=== PATIENT | female | born 1990 | race African-American/Black ===

== ENCOUNTER 2017-08-10 09:33 | Observation (INO) | payer BC ==
[~2017-08-10] VITALS: Ht 162.6 cm; Wt 51.7 kg
[2017-08-10] MEDS ORDERED: SODIUM CHLORIDE 0.9% 1000ML 1,000 ML IV STA (09:41)
[2017-08-10] MEDS ORDERED: ONDANSETRON INJ 2 MG/ML 2 ML VIAL IV STA ×2 (09:41→11:00)
[2017-08-10] MEDS ORDERED: MoRPHine SULFATE 4 MG/ML 1 ML CARP\\VIAL IV STA (09:41)
[2017-08-10 10:07] LABS: BASO % 0.2 %; BASO ABS # 0.01 K/uL (0-0.2); EOS % 0.2 %; EOS ABS # 0.01 K/uL (0-0.5); HEMATOCRIT 39.1 % (37-47); HEMOGLOBIN 13.7 g/dL (12.0-16.0); IG# 0.02 K/uL (0.00-0.02); LYMPH % 19.9 %; LYMPH ABS # 1.02 K/uL (1.2-3.4); MEAN CELL VOLUME 94.2 fL (80-100); MEAN PLATELET VOLUME 9.6 fL (7.4-10.4); MONO % 8.4 %; MONO ABS # 0.43 K/uL (0.11-0.59); NEUT % 70.9 %; NEUT ABS # 3.64 K/uL (1.4-6.5); PLATELET COUNT 263 K/uL (130-400); RED CELL DISTRIBUTION WIDTH CV 13.3 % (11.5-14.5); RED CELL DISTRIBUTION WIDTH SD 46.1 fL (36.4-46.3); WHITE BLOOD COUNT 5.13 K/uL (4.8-10.8)
[2017-08-10 10:26] LABS: ALBUMIN 4.1 gm/dl (3.4-5.0); CALCIUM 9.3 mg/dl (8.5-10.1); CREATININE 0.87 mg/dl (0.60-1.20); POTASSIUM 3.5 mmol/L (3.5-5.1)
[2017-08-10 10:29] LABS: TOTAL PROTEIN 8.1 gm/dl (6.4-8.2)
[2017-08-10] MEDS ORDERED: METOCLOPRAMIDE HCL INJ 5 MG/ML 2 ML VIAL IV. STA (10:38)
[2017-08-10] MEDS ORDERED: LORAZEPAM 2 MG/ML 1 ML VIAL IV STA (11:39)
--- NOTE | 2017-08-10 12:49 | DIAGNOSTIC IMAGING REPORT ---
ABD/PELVIS WITHOUT FOR STONE HISTORY: 26 years-old Female left sided pain eval for stone acute left-sided flank pain COMPARISON: None available TECHNIQUE: Multiple axial CT images of the abdomen and pelvis were obtained without the use of IV contrast. A dose lowering technique was used consistent with the principals of ALVARO. FINDINGS: Lung bases are generally clear. No pneumatosis or pneumoperitoneum identified. Imaged inferior cardiac chambers are unremarkable. The liver, spleen, gallbladder, and pancreas are unremarkable. There is mild thickening of the adrenal glands without discrete lesion definitively seen. There is mildly increased attenuation involving the medullary pyramids of the kidneys bilaterally which may be secondary to dehydration. No definite renal calculi or hydronephrosis. Study however is limited secondary to L2 and lack of mesenteric adipose tissue. Calcifications are seen within the pelvis suggesting phleboliths. Uterus is noted predominantly within the left hemipelvis. No definite adnexal mass lesions identified. Aorta is normal in course and caliber. No bulky adenopathy. Mild free pelvic fluid. There is no bowel obstruction or focal bowel wall thickening. Retained oral contrast is noted throughout the colon. There is mild wall thickening of the colon which extends from the ascending portion to the mid descending portion. Air-filled tubular structure within the right lower quadrant the abdomen is seen on image 259 series 3 suggesting normal appendix. Soft tissues are unremarkable. Bones appear intact. IMPRESSION: 1. No renal calculi or hydronephrosis identified. 2. Mild wall thickening of the colon extending from the region of the hepatic flexure to the mid descending colon may be secondary to partial distention or mild colitis. 3. Mild free pelvic fluid. The above report was generated using voice recognition software. It may contain grammatical, syntax or spelling errors. Electronically signed by: Caden Shook M.D. 08/10/2017 12:48 PM Dictated Date/Time: 08/10/2017 12:40 PM
[2017-08-10] MEDS ORDERED: ZOLPIDEM TARTRATE 5 MG TAB PO PRN (13:45)
[2017-08-10] MEDS ORDERED: ONDANSETRON INJ 2 MG/ML 2 ML VIAL IV PRN (13:45)
[2017-08-10] MEDS ORDERED: ACETAMINOPHEN 325 MG TAB PO PRN (13:45)
--- NOTE | 2017-08-10 14:39 | History and Physical ---
History & Physical Date & Time of Service: Aug 10, 2017 at 14:13 Chief Complaint: Abdominal Pain Primary Care Physician: No Doctor, Assigned History of Present Illness Source: patient, clinic records, hospital records This is a 26yo F with a PMH of cyclical vomiting syndrome, anxiety, depression and PCOS who presents with abdominal pain x 5 days. Patient is from [place] but is in town [facility]. Was initially diagnosed with cyclical vomiting syndrome at age 20 and experienced cycles of vomiting every month. States that at that time she had an EGD and colonoscopy with no abnormal findings. More recently, she has only been experiencing cyclical vomiting every 6-8 months. Went out to a bar on Wednesday and had two mixed drinks. Also endorses smoking marijuana. Had sudden onset 8/10 abdominal pain on in the mid- epigastrium/LUQ with radiation to her back with associated nausea, vomiting and diarrhea. Was first experiencing bilious bouts of vomiting but is now dry heaving every 1-2 hours. Denies any fever, chills, sore throat, cough, CP, SOB, hematemesis, dysuria or constipation. Has been drinking water over the last few days but has remained unable to tolerate food. Endorses smoking marijuana once a week for years. Endorses feeling anxious. Past Medical/Surgical History Medical Problems: (1) Anxiety Status: Chronic (2) Cyclical vomiting syndrome Status: Chronic (3) Depression Status: Chronic (4) PCOS (polycystic ovarian syndrome) Status: Chronic Surgical Problems: (1) History of elective Status: Resolved Family History No pertinent family history Non-contributory Social History Smoking Status: Former Smoker (quit 3 weeks ago) Alcohol Use: socially Drug Use: marijuana (weekly) Housing status: lives alone Occupational Status: unemployed Allergies Coded Allergies: Metoclopramide (Unverified Allergy, Unknown, HIVES, 08/10/17) Home Medications No Active Prescriptions or Reported Meds Review of Systems Ten systems reviewed and negative except as noted in the HPI. Physical Exam Vital Signs Date Time Temp Pulse Resp B/P (MAP) Pulse Ox O2 Delivery O2 Flow Rate FiO2 08/10/17 14:02 78 16 108/80 100 Room Air 08/10/17 12:13 111/66 100 08/10/17 11:34 59 16 100 Room Air 08/10/17 10:53 54 16 141/97 100 Room Air 08/10/17 09:39 37.4 54 16 164/100 100 Room Air General Appearance: no apparent distress, + thin Head: normocephalic, atraumatic Eyes: normal inspection, PERRL, sclerae normal ENT: normal ENT inspection, hearing grossly normal, pharynx normal (dry mucous membranes ) Neck: supple, no adenopathy, trachea midline Respiratory/Chest: chest non-tender, lungs clear, normal breath sounds, no respiratory distress, no accessory muscle use Cardiovascular: regular rate, rhythm, no murmur, normal peripheral pulses Abdomen/GI: normal bowel sounds, soft, no organomegaly, + tenderness (Diffuse TTP, most notably in LUQ. No guarding. ) Back: normal inspection, no CVA tenderness Extremities/Musculoskelatal: normal inspection, no calf tenderness, no pedal edema Neurologic/Psych: no motor/sensory deficits, alert, normal mood/affect ( anxious ), oriented x 3 Skin: normal color, warm/dry, no rash Diagnostics Laboratory Results Results Past 24 Hours Test 08/10/17 09:55 08/10/17 11:23 08/10/17 13:45 Range/Units White Blood Count 5.13 4.8-10.8 K/uL Red Blood Count 4.15 4.2-5.4 M/uL Hemoglobin 13.7 12.0-16.0 g/dL Hematocrit 39.1 37-47 % Mean Corpuscular Volume 94.2 80-100 fL Mean Corpuscular Hemoglobin 33.0 25-34 pg Mean Corpuscular Hemoglobin Concent 35.0 32-36 g/dl Platelet Count 263 130-400 K/uL Mean Platelet Volume 9.6 7.4-10.4 fL Neutrophils (%) (Auto) 70.9 % Lymphocytes (%) (Auto) 19.9 % Monocytes (%) (Auto) 8.4 % Eosinophils (%) (Auto) 0.2 % Basophils (%) (Auto) 0.2 % Neutrophils # (Auto) 3.64 1.4-6.5 K/uL Lymphocytes # (Auto) 1.02 1.2-3.4 K/uL Monocytes # (Auto) 0.43 0.11-0.59 K/uL Eosinophils # (Auto) 0.01 0-0.5 K/uL Basophils # (Auto) 0.01 0-0.2 K/uL RDW Standard Deviation 46.1 36.4-46.3 fL RDW Coefficient of Variation 13.3 11.5-14.5 % Immature Granulocyte % (Auto) 0.4 % Immature Granulocyte # (Auto) 0.02 0.00-0.02 K/uL Sodium Level 136 136-145 mmol/L Potassium Level 3.5 3.5-5.1 mmol/L Chloride Level 102 98-107 mmol/L Carbon Dioxide Level 27 21-32 mmol/L Anion Gap 7.0 3-11 mmol/L Blood Urea Nitrogen 14 7-18 mg/dl Creatinine 0.87 0.60-1.20 mg/dl Est Creatinine Clear Calc Drug Dose 80.7 ml/min Estimated GFR () 107.3 Estimated GFR (Non- 92.6 BUN/Creatinine Ratio 16.4 10-20 Random Glucose 102 70-99 mg/dl Calcium Level 9.3 8.5-10.1 mg/dl Total Bilirubin 0.8 0.2-1 mg/dl Direct Bilirubin 0.2 0-0.2 mg/dl Aspartate Amino Transf (AST/SGOT) 17 15-37 U/L Alanine Aminotransferase (ALT/SGPT) 24 12-78 U/L Alkaline Phosphatase 47 45-117 U/L Total Protein 8.1 6.4-8.2 gm/dl Albumin 4.1 3.4-5.0 gm/dl Lipase 700 73-393 U/L Human Chorionic Gonadotropin, Qual NEG NEG Diagnostic Radiology CT abd/pelvis: IMPRESSION: 1. No renal calculi or hydronephrosis identified. 2. Mild wall thickening of the colon extending from the region of the hepatic flexure to the mid descending colon may be secondary to partial distention or mild colitis. 3. Mild free pelvic fluid. Impression Assessment and Plan This is a 26yo F with a PMH of cyclical vomiting syndrome, anxiety, depression and PCOS who presents with abdominal pain x 5 days. Intractable nausea, vomiting: -Likely 2/2 history of cyclical vomiting syndrome, marijuana use -Discussed marijuana cessation -Also discussed possibility of viral gastroenteritis -Lipase of 700. Electrolytes wnl. No leukocytosis -Negative test -Flu antigen test, stool cultures and c. diff pending -CT abd pelvis with no evidence of pancreatitis. Mild colitis -Keep NPO for now. Advance diet as tolerated -Repeat lab work in AM - Zofran, IV tylenol Anxiety, depression: -Stable -No longer takes medication DVT Ppx: Brian romero Code status: FULL PCP: No local INTERIOR DESIGN PROGRAM CHAIR: visiting from [place] Dispo: [facility]. Plan to return home once medically stable. Patient seen in collaboration with Dr. Montemayor. Please see addendum. Agree with above H and P. Briefly 26F with hx of cyclic vomiting syndrome, anxiety, depression presents with vomiting and abdominal pain. Somewhat better since coming to ER. Afebrile.No chest pain or sob. No fevers. hemodynamics stable. p/e Ge : alert and oriented .not in distress Cvs s1 and s2 heard no murmurs Rs cta b/l no added sounds Abd diffuse tender no distension no guarding or rigidity [employer] non focal Ext no erythema a/p Nausea.vomiting abdominal pain hx of cyclic vomiting syndrome most likely from marijuana smoking lipase elevated but ct scan unremarkable except for mild colitis npo, fluids anti emetics repeat lipase in am advance diet as tolerated UTI possible f/u cx started on Rocephin Level of Care Med/Surg Resuscitation Status FULL RESUSCITATION VTE Prophylaxis VTE Risk Assessment Done? Y/N: Yes Risk Level: Low Given or contraindicated: TKandi Stockings Social Service Consult None Apply
[2017-08-10 14:46] LABS: INFLUENZA B ANTIGEN Neg for Influ B (NEG)
[2017-08-10 15:04] VITALS: BP 114/73; PULSE 58; TEMP 36.7; O2SAT 97; Ht 162.6 cm; Wt 51.7 kg
--- NOTE | 2017-08-10 15:11 | EMERGENCY ROOM VISIT NOTE ---
History Report prepared by Liza: Jose Antonio Coyle Under the Supervision of: Dr. Patrice Wright M.D. First contact with patient: 09:36 Stated Complaint: ABDOMINAL PAIN History of Present Illness The patient is a 26 year old female who presents to the Emergency Room brought in by EMS with complaints of constant abdominal pain that began three days [employer]. She currently rates her pain a 10/10 in severity. She describes the pain as cramping. She is unsure if she has had a fever, though she feels very hot. She notes diarrhea that began three days ago, though denies any bloody stools. She denies any problems urinating. She has been vomiting for three days. She has a history of cyclical vomiting syndrome. She has had similar pain in the past. She believes the pain hurts more than previous symptoms. She has seen a GI doctor where she has had an EGD and colonoscopy, with no pertinent findings. She denies any history of Crohn's disease. Source of History: patient Onset: three days [employer] Position: abdomen Symptom Intensity: 10/10 Quality: other (cramping) Timing: constant Associated Symptoms: + vomiting, + diarrhea, No urinary symptoms Note: She notes abdominal pain and possible fever. She denies any bloody stools. Review of Systems See HPI for pertinent positives & negatives. A total of 10 systems reviewed and were otherwise negative. Past Medical & Surgical Medical Problems: (1) Anxiety (2) Cyclical vomiting syndrome (3) Depression (4) PCOS (polycystic ovarian syndrome) Surgical Problems: (1) History of elective No pertinent past medical or past surgical history reported. Family History No pertinent family history Social History Smoking Status: Never Smoker Smokeless Tobacco Use: No Alcohol Use: occasionally (on special occasion) Drug Use: none Marital Status: in relationship Housing Status: lives with family Occupation Status: employed Current/Historical Medications No Active Prescriptions or Reported Meds Allergies Coded Allergies: Metoclopramide (Unverified Allergy, Unknown, HIVES, 08/10/17) Physical Exam Vital Signs Date Time Temp Pulse Resp B/P (MAP) Pulse Ox O2 Delivery O2 Flow Rate FiO2 08/10/17 14:51 56 15 112/76 99 08/10/17 14:02 78 16 108/80 100 Room Air 08/10/17 12:13 111/66 100 08/10/17 11:34 59 16 100 Room Air 08/10/17 10:53 54 16 141/97 100 Room Air 08/10/17 09:39 37.4 54 16 164/100 100 Room Air Physical Exam Patient writhing and moaning in pain Constitutional: Vital signs reviewed. Eyes: Pupils are equal round reactive to light. Conjunctiva are noninjected. ENT: Pharynx is clear without erythema or exudate. Mucous membranes are moist. Neck supple without meningeal signs. Respiratory: Clear to auscultation bilaterally. Breath sounds are equal bilaterally. Cardiovascular: Regular rate and rhythm. No rubs or gallops. GI: Soft, nondistended. Bowel sounds are present. LLQ tenderness. Musculoskeletal: No peripheral edema. No lower extremity tenderness. Integumentary: No cyanosis. Neurological: The patient is awake and alert. No focal deficits. Psychiatric: Very anxious. Medical Decision & Procedures ER Provider Diagnostic Interpretation: Radiology results as stated below per my review and the radiologist's interpretation: ABD/PELVIS WITHOUT FOR STONE HISTORY: 26 years-old Female left sided pain eval for stone acute left-sided flank pain COMPARISON: None available TECHNIQUE: Multiple axial CT images of the abdomen and pelvis were obtained without the use of IV contrast. A dose lowering technique was used consistent with the principals of ALARA. FINDINGS: Lung bases are generally clear. No pneumatosis or pneumoperitoneum identified. Imaged inferior cardiac chambers are unremarkable. The liver, spleen, gallbladder, and pancreas are unremarkable. There is mild thickening of the adrenal glands without discrete lesion definitively seen. There is mildly increased attenuation involving the medullary pyramids of the kidneys bilaterally which may be secondary to dehydration. No definite renal calculi or hydronephrosis. Study however is limited secondary to L2 and lack of mesenteric adipose tissue. Calcifications are seen within the pelvis suggesting phleboliths. Uterus is noted predominantly within the left hemipelvis. No definite adnexal mass lesions identified. Aorta is normal in course and caliber. No bulky adenopathy. Mild free pelvic fluid. There is no bowel obstruction or focal bowel wall thickening. Retained oral contrast is noted throughout the colon. There is mild wall thickening of the colon which extends from the ascending portion to the mid descending portion. Air-filled tubular structure within the right lower quadrant the abdomen is seen on image 259 series 3 suggesting normal appendix. Soft tissues are unremarkable. Bones appear intact. IMPRESSION: 1. No renal calculi or hydronephrosis identified. 2. Mild wall thickening of the colon extending from the region of the hepatic flexure to the mid descending colon may be secondary to partial distention or mild colitis. 3. Mild free pelvic fluid. The above report was generated using voice recognition software. It may contain grammatical, syntax or spelling errors. Electronically signed by: Caden Shook M.D. 08/10/2017 12:48 PM Dictated Date/Time: 08/10/2017 12:40 PM Laboratory Results 08/10/17 09:55 Red Blood Count 4.15, Mean Corpuscular Volume 94.2, Mean Corpuscular Hemoglobin 33.0, Mean Corpuscular Hemoglobin Concent 35.0, Mean Platelet Volume 9.6, Neutrophils (%) (Auto) 70.9, Lymphocytes (%) (Auto) 19.9, Monocytes (%) (Auto) 8.4, Eosinophils (%) (Auto) 0.2, Basophils (%) (Auto) 0.2, Neutrophils # (Auto) 3.64, Lymphocytes # (Auto) 1.02, Monocytes # (Auto) 0.43, Eosinophils # (Auto) 0.01, Basophils # (Auto) 0.01 08/10/17 09:55 Test 08/10/17 09:55 08/10/17 11:23 08/10/17 14:05 White Blood Count 5.13 K/uL (4.8-10.8) Red Blood Count 4.15 M/uL (4.2-5.4) Hemoglobin 13.7 g/dL (12.0-16.0) Hematocrit 39.1 % (37-47) Mean Corpuscular Volume 94.2 fL (80-100) Mean Corpuscular Hemoglobin 33.0 pg (25-34) Mean Corpuscular Hemoglobin Concent 35.0 g/dl (32-36) Platelet Count 263 K/uL (130-400) Mean Platelet Volume 9.6 fL (7.4-10.4) Neutrophils (%) (Auto) 70.9 % Lymphocytes (%) (Auto) 19.9 % Monocytes (%) (Auto) 8.4 % Eosinophils (%) (Auto) 0.2 % Basophils (%) (Auto) 0.2 % Neutrophils # (Auto) 3.64 K/uL (1.4-6.5) Lymphocytes # (Auto) 1.02 K/uL (1.2-3.4) Monocytes # (Auto) 0.43 K/uL (0.11-0.59) Eosinophils # (Auto) 0.01 K/uL (0-0.5) Basophils # (Auto) 0.01 K/uL (0-0.2) RDW Standard Deviation 46.1 fL (36.4-46.3) RDW Coefficient of Variation 13.3 % (11.5-14.5) Immature Granulocyte % (Auto) 0.4 % Immature Granulocyte # (Auto) 0.02 K/uL (0.00-0.02) Anion Gap 7.0 mmol/L (3-11) Est Creatinine Clear Calc Drug Dose 80.7 ml/min Estimated GFR () 107.3 Estimated GFR (Non- 92.6 BUN/Creatinine Ratio 16.4 (10-20) Calcium Level 9.3 mg/dl (8.5-10.1) Total Bilirubin 0.8 mg/dl (0.2-1) Direct Bilirubin 0.2 mg/dl (0-0.2) Aspartate Amino Transf (AST/SGOT) 17 U/L (15-37) Alanine Aminotransferase (ALT/SGPT) 24 U/L (12-78) Alkaline Phosphatase 47 U/L (45-117) Total Protein 8.1 gm/dl (6.4-8.2) Albumin 4.1 gm/dl (3.4-5.0) Lipase 700 U/L (73-393) Human Chorionic Gonadotropin, Qual NEG (NEG) Influenza Type A Antigen Neg for Influ A (NEG) Influenza Type B Antigen Neg for Influ B (NEG) Laboratory results as reviewed by me. Medications Administered Medications (Trade) Dose Ordered Sig/Nafisa Route Start Time Stop Time Status Last Admin Dose Admin Morphine Sulfate (MoRPHine SULFATE INJ) 4 mg ONE STAT IV 08/10/17 09:41 08/10/17 09:42 DC 08/10/17 09:56 4 MG Ondansetron HCl (Zofran Inj) 4 mg NOW STAT IV 08/10/17 09:41 08/10/17 09:42 DC 08/10/17 09:57 4 MG Sodium Chloride 1,000 ml @ 999 mls/hr Q1H1M STAT IV 08/10/17 09:41 08/10/17 10:41 DC 08/10/17 09:41 999 MLS/HR Ondansetron HCl (Zofran Inj) 4 mg NOW STAT IV 08/10/17 11:00 08/10/17 11:01 DC 08/10/17 11:31 4 MG Lorazepam (Ativan Inj) 0.5 mg NOW STAT IV 08/10/17 11:39 08/10/17 11:41 DC 08/10/17 11:54 0.5 MG ED Course 0936: The patient was evaluated in room B5. A complete history and physical exam was performed. 0941: Sodium Chloride 1,000 ml @ 999 mls/hr IV, Zofran 4 mg IV, and Morphine Sulfate 4 mg IV 1035: I reassessed the patient at this time. She is feeling better, though has tenderness to left abdomen. I recommended a CT A/P. 1100: Ordered Zofran 4 mg IV 1136: The nurse states the patient is requesting something for anxiety. 1139: Lorazepam 0.5 mg IV 1300: I reassessed the patient at this time. She feels less nauseous. She reports a history of colitis in the past at the age of [age] years old. She has never been diagnosed with irritable bowel disease. She states that she rarely drinks ETOH and only on special occasions. I discussed the results and treatment plan with the patient. I answered all pertaining questions that she had. She expressed understanding and verbalized agreement. The patient will be further evaluated. 1302: I spoke with Jennifer Cooper PA-C. We discussed the patients case. [facility] Medical Decision This is a 26-year-old female who presents with left-sided flank pain and vomiting. Differential diagnosis includes cyclic vomiting syndrome, bowel obstruction, gastroparesis, kidney stone, ectopic . I did perform a limited focused review of portions of the patient's old chart on the electronic medical record. The patient has had no prior visits to this hospital. I did evaluate the patient as noted above. The patient is presenting with significant pain with vomiting for the past 2 days. She does have a history of cyclic vomiting syndrome. IV access was established. I did treat the patient with Zofran IV and morphine IV. She is also given normal saline IV. I did order a urinalysis but she was unable to provide us with a sample. I did order and review the patient's blood work as noted in the electronic medical record. Her lipase is 700. I did order a CT of the abdomen and pelvis. I did review the images myself as well as the radiology report as described above. There is no evidence of pancreatitis. The patient does have signs of colitis and an intrarenal kidney stone. I did reassess the patient. She still nauseated and was given additional IV Zofran. She does state that she has had a history of colitis in the past but had not said so earlier because she was in so much discomfort. She states that the last episode she had was when she was 20. She also had an episode when she was about 13 or 14 years old. She states she was never diagnosed with inflammatory bowel disease. I did discuss the test results with her. She is visiting from out of town and has no close follow up. Given her symptoms and elevated lipase of did recommend that we hospitalize her for repeat blood work as well as further care and evaluation. I did discuss case with the hospitalist and hospice case manager. Medication Reconcilliation Current Medication List: was personally reviewed by me Blood Pressure Screening Patient's blood pressure: Elevated blood pressure Blood pressure disposition: Referred to PCP Consults Time Called: 1256 Consulting Physician: Jennifer Cooper PA-C Returned Call: 1302 I spoke with Jennifer Cooper PA-C. We discussed the patients case. The patient will be evaluated by the [facility] for further management. Impression Primary Impression: Colitis Additional Impressions: Intractable nausea and vomiting Elevated lipase Scribe Attestation The scribe's documentation has been prepared under my direct and personally reviewed by me in its entirety. I confirm that the note above accurately reflects all work, treatment, procedures, and medical decision making performed by me. Departure Information Dispostion Being Evaluated By Hospitalist Prescriptions No Active Prescriptions or Reported Meds Referrals No Doctor, Assigned (PCP) Problem Qualifiers Additional Impressions: Intractable nausea and vomiting Vomiting type: cyclical vomiting Qualified Codes: G43.A1 - Cyclical vomiting , intractable
[2017-08-10 15:47] VITALS: BP 114/73; PULSE 58; TEMP 36.7; O2SAT 97
[2017-08-10] MEDS: ONDANSETRON INJ 2 MG/ML 2 ML VIAL IV SCH ×2 (16:17→19:57)
[2017-08-10] MEDS: D5W AND 1/2NSS 1,000 ML IV SCH (16:17)
[2017-08-10] MEDS: ACETAMINOPHEN IV 1,000 MG in EMPTY BAG 0 ML IV SCH (16:18)
[2017-08-10] MEDS: CEFTRIAXONE SOD INJ 1 GM in DEXTROSE 5% ADD-VANTAGE 50ML 50 ML IV SCH (17:55)
[2017-08-10] MEDS ORDERED: INFLUENZA ADMINISTRATION CHARGE ONE (18:00)
[2017-08-10] MEDS ORDERED: INFLUENZA VIRUS QUAD VACCINE 0.5 ML SYR IM. ONE (18:00)
[2017-08-10 19:51] VITALS: BP 117/70; PULSE 54; TEMP 36.8; O2SAT 97
[2017-08-10] MEDS: PROMETHAZINE HCL INJ 12.5 MG in SODIUM CHLORIDE 0.9% 50ML 50 ML IV PRN (22:26)
[2017-08-10 23:06] VITALS: BP 153/95; PULSE 48; TEMP 37.1; O2SAT 100
[2017-08-11] MEDS: D5W AND 1/2NSS 1,000 ML IV SCH ×4 (00:05→18:04)
[2017-08-11] MEDS: ACETAMINOPHEN IV 1,000 MG in EMPTY BAG 0 ML IV SCH ×4 (00:06→23:13)
[2017-08-11] MEDS: ONDANSETRON INJ 2 MG/ML 2 ML VIAL IV SCH ×5 (01:48→21:40)
[2017-08-11 06:59] LABS: HEMATOCRIT 34.9 % (37-47); MEAN CELL VOLUME 95.1 fL (80-100); MEAN CORPUSCULAR HEMOGLOBIN 32.7 pg (25-34); MEAN CORPUSCULAR HGB CONC 34.4 g/dl (32-36); MEAN PLATELET VOLUME 9.7 fL (7.4-10.4); PLATELET COUNT 221 K/uL (130-400); RED CELL DISTRIBUTION WIDTH CV 13.1 % (11.5-14.5)
[2017-08-11 07:32] VITALS: BP 149/87; PULSE 81; TEMP 36.5; O2SAT 90
[2017-08-11 07:38] LABS: ALBUMIN 3.2 gm/dl (3.4-5.0); CALCIUM 8.1 mg/dl (8.5-10.1); CREATININE 0.77 mg/dl (0.60-1.20); POTASSIUM 3.5 mmol/L (3.5-5.1); TOTAL PROTEIN 6.5 gm/dl (6.4-8.2)
[2017-08-11] MEDS: PROMETHAZINE HCL INJ 12.5 MG in SODIUM CHLORIDE 0.9% 50ML 50 ML IV PRN ×2 (09:28→15:50)
[2017-08-11] MEDS ORDERED: LORAZEPAM INJ 0.5 MG in SYRINGE 0.75 ML IV ONE (10:00)
[2017-08-11 11:29] VITALS: BP 176/96; PULSE 68; TEMP 36.8; O2SAT 99
--- NOTE | 2017-08-11 15:02 | Progress Note ---
Medicine Progress Note Date & Time of Visit: Aug 11, 2017 at 14:55. Subjective Pt was seen and examined Lying in bed Pt said that she continues to feels very anxious and noxious She said that she continue vomiting Pt said that her symptoms usually last for 1 week Denies any fever, dysuria and SOB Objective Last 8 Hrs Date Time Temp Pulse Resp B/P (MAP) Pulse Ox O2 Delivery O2 Flow Rate FiO2 08/11/17 11:29 36.8 68 16 176/96 (122) 99 Room Air 08/11/17 07:40 Room Air 08/11/17 07:32 36.5 81 16 149/87 (107) 90 Room Air Physical Exam: General- anxious Head- atraumatic Eyes- PERRL, EOMI ENT- oropharynx clear Neck- supple, no JVD Lungs- clear to auscultation Heart- regular rhythm; no murmur Abdomen- normal bowel sounds, soft, +tender Extremities- no pretibial edema, no calf tenderness Neuro- alert, oriented x 3; PERRL, EOMI Skin- warm & dry Laboratory Results: Last 24 Hours Test 08/10/17 16:35 08/11/17 06:44 Urine Color DK YELLOW Urine Appearance TURBID Urine pH 6.5 Urine Specific [place] 1.036 Urine Protein 1+ Urine Glucose (UA) NEG Urine Ketones 3+ Urine Occult Blood NEG Urine Nitrite POS Urine Bilirubin NEG Urine Urobilinogen NEG Urine Leukocyte Esterase MODERATE Urine WBC (Auto) >30 /hpf Urine RBC (Auto) 0-4 /hpf Urine Hyaline Casts (Auto) /lpf Urine Epithelial Cells (Auto) >30 /lpf Urine Bacteria (Auto) 2+ Urine Pathogenic Casts /lpf Urine Test NEG White Blood Count 4.30 K/uL Red Blood Count 3.67 M/uL Hemoglobin 12.0 g/dL Hematocrit 34.9 % Mean Corpuscular Volume 95.1 fL Mean Corpuscular Hemoglobin 32.7 pg Mean Corpuscular Hemoglobin Concent 34.4 g/dl RDW Standard Deviation 46.0 fL RDW Coefficient of Variation 13.1 % Platelet Count 221 K/uL Mean Platelet Volume 9.7 fL Sodium Level 136 mmol/L Potassium Level 3.5 mmol/L Chloride Level 104 mmol/L Carbon Dioxide Level 28 mmol/L Anion Gap 4.0 mmol/L Blood Urea Nitrogen 7 mg/dl Creatinine 0.77 mg/dl Est Creatinine Clear Calc Drug Dose 91.2 ml/min Estimated GFR () 124.4 Estimated GFR (Non- 107.3 BUN/Creatinine Ratio 8.5 Random Glucose 110 mg/dl Calcium Level 8.1 mg/dl Total Bilirubin 0.5 mg/dl Aspartate Amino Transf (AST/SGOT) 8 U/L Alanine Aminotransferase (ALT/SGPT) 18 U/L Alkaline Phosphatase 38 U/L Total Protein 6.5 gm/dl Albumin 3.2 gm/dl Globulin 3.3 gm/dl Albumin/Globulin Ratio 1.0 Lipase 891 U/L Date/Time Source Procedure Growth Status 08/10/17 16:35 Urine , Clean Catch Urine Culture - Final THREE TYPES OF ORGANISMS PRESENT, ALL... Complete Assessment & Plan Intractable nausea/vomiting: Cyclical vomiting syndrome possible triggered by marijuana used CT abd/pelvis showed Mild wall thickening of the colon extending from the region of the hepatic flexure to the mid descending colon may be secondary to partial distention or mild colitis. 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 [place] Current Inpatient Medications: Current Inpatient Medications Medications (Trade) Dose Ordered Sig/Nafisa Route Start Time Stop Time Status Last Admin Dose Admin Zolpidem Tartrate (Ambien Tab) 5 mg HSZ PRN PO 08/10/17 13:45 09/09/17 13:44 Dextrose/Sodium Chloride 1,000 ml @ 125 mls/hr Q8H IV 08/10/17 13:45 09/09/17 13:44 08/11/17 07:35 125 MLS/HR Acetaminophen 1000 mg/Empty Bag 100 ml @ 400 mls/hr Q8H IV 08/10/17 16:00 09/09/17 15:59 08/11/17 07:33 400 MLS/HR Miscellaneous (Iv Fluids Completed) 1 ea PRN PRN N/A 08/10/17 16:30 08/10/18 16:29 Ceftriaxone Sodium 1 gm/ Dextrose 50 ml @ 100 mls/hr Q24H IV 08/10/17 18:00 08/20/17 17:59 08/10/17 17:55 100 MLS/HR Promethazine HCl 12.5 mg/Sodium Chloride 50.5 ml @ 204 mls/hr Q6H PRN IV 08/10/17 21:45 09/09/17 21:44 08/11/17 09:28 204 MLS/HR Ondansetron HCl (Zofran Inj) 4 mg Q4 IV 08/11/17 12:00 09/09/17 13:59 08/11/17 13:17 4 MG
[2017-08-11 16:01] VITALS: BP 96/61; PULSE 123; TEMP 37.3; O2SAT 90
[2017-08-11] MEDS ORDERED: NURSING VERBAL MED ORDER ONE ×2 (16:15→21:15)
[2017-08-11] MEDS ORDERED: LORAZEPAM 0.5 MG TAB PO ONE (16:30)
[2017-08-11] MEDS: CEFTRIAXONE SOD INJ 1 GM in DEXTROSE 5% ADD-VANTAGE 50ML 50 ML IV SCH (18:05)
[2017-08-11 23:48] VITALS: BP 115/78; PULSE 56; TEMP 37.2; O2SAT 100
[2017-08-12] MEDS: D5W AND 1/2NSS 1,000 ML IV SCH ×3 (02:41→19:50)
[2017-08-12] MEDS: ONDANSETRON INJ 2 MG/ML 2 ML VIAL IV SCH ×2 (02:41→05:46)
[2017-08-12] MEDS: ACETAMINOPHEN IV 1,000 MG in EMPTY BAG 0 ML IV SCH ×2 (07:30→16:43)
[2017-08-12 07:35] VITALS: BP 132/79; PULSE 67; TEMP 37.2; O2SAT 100
[2017-08-12] MEDS: PROMETHAZINE HCL INJ 12.5 MG in SODIUM CHLORIDE 0.9% 50ML 50 ML IV PRN ×3 (09:38→23:03)
[2017-08-12 09:41] LABS: CREATININE 0.78 mg/dl (0.60-1.20); POTASSIUM 3.3 mmol/L (3.5-5.1)
[2017-08-12] MEDS ORDERED: POTASSIUM CHLORIDE 20 MEQ TABCR PO ONE (10:00)
[2017-08-12] MEDS ORDERED: LORAZEPAM 0.5 MG TAB PO ONE (11:15)
[2017-08-12] MEDS ORDERED: KETOROLAC TROMETHAMINE 15 MG/ML VIAL IV ONE (11:15)
[2017-08-12] MEDS: ONDANSETRON INJ 2 MG/ML 2 ML VIAL IV PRN (13:49)
[2017-08-12 15:40] VITALS: BP 165/100; PULSE 60; TEMP 37.2; O2SAT 100
[2017-08-12 17:27] VITALS: BP 156/91
[2017-08-12] MEDS: CEFTRIAXONE SOD INJ 1 GM in DEXTROSE 5% ADD-VANTAGE 50ML 50 ML IV SCH (18:00)
[2017-08-12 19:28] VITALS: BP 155/94; PULSE 68; TEMP 37.3; O2SAT 98
--- NOTE | 2017-08-12 19:33 | Progress Note ---
Medicine Progress Note Date & Time of Visit: Aug 12, 2017 at 19:27. Subjective Pt was seen and examined Lying in bed with no distress She continue to have back pain Pt said that she has not vomited She said that she continue to feel nausea She tolerated her diet Denies any chest pain, palpitation and SOB Objective Last 8 Hrs Date Time Temp Pulse Resp B/P (MAP) Pulse Ox O2 Delivery O2 Flow Rate FiO2 08/12/17 17:27 156/91 (112) 08/12/17 16:00 Room Air 08/12/17 15:40 37.2 60 18 165/100 (121) 100 Physical Exam: General- anxious Head- atraumatic Eyes- PERRL, EOMI ENT- oropharynx clear Neck- supple, no JVD Lungs- clear to auscultation Heart- regular rhythm; no murmur Abdomen- normal bowel sounds, soft, +tender Extremities- no pretibial edema, no calf tenderness Neuro- alert, oriented x 3; PERRL, EOMI Skin- warm & dry Laboratory Results: Last 24 Hours Test 08/12/17 08:52 Sodium Level 139 mmol/L Potassium Level 3.3 mmol/L Chloride Level 106 mmol/L Carbon Dioxide Level 27 mmol/L Anion Gap 6.0 mmol/L Blood Urea Nitrogen 5 mg/dl Creatinine 0.78 mg/dl Est Creatinine Clear Calc Drug Dose 90.0 ml/min Estimated GFR () 122.5 Estimated GFR (Non- 105.7 BUN/Creatinine Ratio 6.2 Random Glucose 62 mg/dl Calcium Level 8.0 mg/dl Magnesium Level 1.8 mg/dl Lipase 1069 U/L Assessment & Plan Intractable nausea/vomiting: Cyclical vomiting syndrome possible triggered by marijuana used CT abd/pelvis showed Mild wall thickening of the colon extending from the region of the hepatic flexure to the mid descending colon may be secondary to partial distention or mild colitis. 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 [place] Current Inpatient Medications: Current Inpatient Medications Medications (Trade) Dose Ordered Sig/Nafisa Route Start Time Stop Time Status Last Admin Dose Admin Zolpidem Tartrate (Ambien Tab) 5 mg HSZ PRN PO 08/10/17 13:45 09/09/17 13:44 Dextrose/Sodium Chloride 1,000 ml @ 125 mls/hr Q8H IV 08/10/17 13:45 09/09/17 13:44 08/12/17 11:01 125 MLS/HR Acetaminophen 1000 mg/Empty Bag 100 ml @ 400 mls/hr Q8H IV 08/10/17 16:00 09/09/17 15:59 08/12/17 16:43 400 MLS/HR Miscellaneous (Iv Fluids Completed) 1 ea PRN PRN N/A 08/10/17 16:30 08/10/18 16:29 Ceftriaxone Sodium 1 gm/ Dextrose 50 ml @ 100 mls/hr Q24H IV 08/10/17 18:00 08/20/17 17:59 08/12/17 18:00 100 MLS/HR Promethazine HCl 12.5 mg/Sodium Chloride 50.5 ml @ 204 mls/hr Q6H PRN IV 08/10/17 21:45 09/09/17 21:44 08/12/17 16:06 204 MLS/HR Ondansetron HCl (Zofran Inj) 4 mg Q4H PRN IV 08/12/17 14:00 09/11/17 01:59 08/12/17 13:49 4 MG
[2017-08-12] MEDS: KETOROLAC TROMETHAMINE 15 MG/ML VIAL IV PRN (23:03)
[2017-08-13] MEDS: ONDANSETRON INJ 2 MG/ML 2 ML VIAL IV PRN ×3 (00:39→18:34)
[2017-08-13] MEDS: ACETAMINOPHEN IV 1,000 MG in EMPTY BAG 0 ML IV SCH ×3 (00:39→15:43)
[2017-08-13 00:48] VITALS: BP 152/88; PULSE 72; TEMP 36.8; O2SAT 100
[2017-08-13] MEDS: D5W AND 1/2NSS 1,000 ML IV SCH ×3 (05:38→14:00)
[2017-08-13 07:37] VITALS: BP 122/72; PULSE 20; PULSE 56; TEMP 36.8; O2SAT 100
[2017-08-13] MEDS: KETOROLAC TROMETHAMINE 15 MG/ML VIAL IV PRN (09:09)
[2017-08-13 09:31] LABS: CALCIUM 8.4 mg/dl (8.5-10.1); CREATININE 0.59 mg/dl (0.60-1.20); POTASSIUM 3.3 mmol/L (3.5-5.1)
[2017-08-13] MEDS ORDERED: POTASSIUM CHLORIDE 10 MEQ TABCR PO ONE (11:15)
[2017-08-13] MEDS: POTASSIUM CHLR 10 MEQ / WTR 10 MEQ in PREMIXED WATER 100 ML IV SCH ×2 (12:01→13:45)
[2017-08-13] MEDS ORDERED: LORAZEPAM INJ 0.5 MG in SYRINGE 0.25 ML IV ONE (12:30)
[2017-08-13] MEDS: IV FLUIDS COMPLETED PRN ×3 (12:30→14:01)
[2017-08-13] MEDS: PROMETHAZINE HCL INJ 12.5 MG in SODIUM CHLORIDE 0.9% 50ML 50 ML IV PRN ×2 (12:39→19:05)
[2017-08-13] MEDS: CAPSAICIN CR 0.075% 60 GM TUBE EXT SCH ×2 (13:03→17:14)
[2017-08-13 14:27] VITALS: BP 151/93; PULSE 67; TEMP 37; O2SAT 100
[2017-08-13 16:00] VITALS: O2SAT 100
--- NOTE | 2017-08-13 18:45 | Progress Note ---
Medicine Progress Note Date & Time of Visit: Aug 13, 2017 at 18:37. Subjective Pt was seen and examined Lying in bed with no distress Pt said that she feels a little better She asked for her diet to increase She would like to be discharged today No chest pain, palpitation and Fever Objective Last 8 Hrs Date Time Temp Pulse Resp B/P (MAP) Pulse Ox O2 Delivery O2 Flow Rate FiO2 08/13/17 16:00 100 Room Air 08/13/17 14:27 37.0 67 18 151/93 (112) 100 Physical Exam: General- anxious Head- atraumatic Eyes- PERRL, EOMI ENT- oropharynx clear Neck- supple, no JVD Lungs- clear to auscultation Heart- regular rhythm; no murmur Abdomen- normal bowel sounds, soft, +tender Extremities- no pretibial edema, no calf tenderness Neuro- alert, oriented x 3; PERRL, EOMI Skin- warm & dry Laboratory Results: Last 24 Hours Test 08/13/17 08:25 Sodium Level 139 mmol/L Potassium Level 3.3 mmol/L Chloride Level 105 mmol/L Carbon Dioxide Level 27 mmol/L Anion Gap 7.0 mmol/L Blood Urea Nitrogen 3 mg/dl Creatinine 0.59 mg/dl Est Creatinine Clear Calc Drug Dose 119.0 ml/min Estimated GFR () 147.6 Estimated GFR (Non- 127.4 BUN/Creatinine Ratio 5.7 Random Glucose 97 mg/dl Calcium Level 8.4 mg/dl Lipase 180 U/L Assessment & Plan Intractable nausea/vomiting: Cyclic vomiting syndrome Possible triggered by marijuana used CT abd/pelvis showed Mild wall thickening of the colon extending from the region of the hepatic flexure to the mid descending colon may be secondary to partial distention or mild colitis. 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[place] Disposition Will discharge home today if tolerated diet Current Inpatient Medications: Current Inpatient Medications Medications (Trade) Dose Ordered Sig/Nafisa Route Start Time Stop Time Status Last Admin Dose Admin Zolpidem Tartrate (Ambien Tab) 5 mg HSZ PRN PO 08/10/17 13:45 09/09/17 13:44 Dextrose/Sodium Chloride 1,000 ml @ 100 mls/hr Q10H IV 08/10/17 13:45 09/09/17 13:44 08/13/17 14:00 100 MLS/HR Acetaminophen 1000 mg/Empty Bag 100 ml @ 400 mls/hr Q8H IV 08/10/17 16:00 09/09/17 15:59 08/13/17 15:43 400 MLS/HR Miscellaneous (Iv Fluids Completed) 1 ea PRN PRN N/A 08/10/17 16:30 08/10/18 16:29 08/13/17 12:30 1 EA Promethazine HCl 12.5 mg/Sodium Chloride 50.5 ml @ 204 mls/hr Q6H PRN IV 08/10/17 21:45 09/09/17 21:44 08/13/17 12:39 204 MLS/HR Ondansetron HCl (Zofran Inj) 4 mg Q4H PRN IV 08/12/17 14:00 09/11/17 01:59 08/13/17 09:08 4 MG Ketorolac Tromethamine (Toradol Inj) 15 mg Q6H PRN IV 08/12/17 21:00 08/17/17 20:59 08/13/17 09:09 15 MG Capsaicin (Zostrix Crm) 1 appln QID EXT 08/13/17 13:00 09/12/17 12:59 08/13/17 17:14 1 APPLN
[2017-08-13] MEDS ORDERED: ONDA4TAB10 SL (19:07)
--- NOTE | 2017-08-13 19:07 | Discharge Instructions ---
Discharge Instructions Date of Service Aug 13, 2017. Admission Reason for Admission: Intractable Nausea And Vomiting Discharge Discharge Diagnosis / Problem: Cyclic vomiting syndrome, Anxiety Discharge Goals Goal(s): Decrease discomfort, Improve function, Improve disease control Activity Recommendations Activity Limitations: resume your previous activity (as tolereted) . Instructions / Follow-Up Instructions / Follow-Up Follow up with your primary care provider within 1 week Increase potassium intake in your diet (banana, yogurt, sweet potatoes,..) Counseling on marijuana cessation Continue apply the capsaicin 4xtimes daily as needed until symptoms resolve ( Ok to discharge pt with remaining capsaicin) Current Hospital Diet Patient's current hospital diet: Regular Diet, Low Fiber Diet Discharge Diet Recommended Diet: Regular Diet Pending Studies Studies pending at discharge: no Medical Emergencies . Who to Call and When: Medical Emergencies: If at any time you feel your situation is an emergency, please call 911 immediately. . Non-Emergent Contact Non-Emergency issues call your: Primary Care Provider Call Non-Emergent contact if: your pain is not controlled, you have any medication questions . . "Provider Documentation" section prepared by Oxana Del Castillo. . VTE Core Measure Inpt VTE Proph given/why not?: Justin Toth
[2017-08-13 19:26] VITALS: BP 135/93; PULSE 67; TEMP 37; O2SAT 100
--- NOTE | 2017-08-14 23:36 | Discharge Summary ---
Discharge Summary Date of Service Aug 14, 2017. Discharge Summary Admission Date: Aug 10, 2017 at 13:41 Discharge Date: Aug 13, 2017 Discharge Disposition: Home Principal Diagnosis: Cyclic vomiting syndrome Secondary Diagnoses/Problems: Cannabinoid abuse Hypokalemia Procedures: Patient Name: ANUJ DUDLEY Unit Number: [id number] Dictated: 08/10/[id number] Transcribed: 08/10/171239 JRB Printed Date/Time: [~ rep prt dt]/[~ rep prt tm] [~ rep ct labl] - [~ rep ct ivnm] [facility] [place] [address] Dictated: 08/10/[id number] Transcribed: 08/10/17 124 JRB Printed Date/Time: [~ rep prt dt]/[~ rep prt tm] [~ rep ct labl] - [~ rep ct ivnm] ABD/PELVIS WITHOUT FOR STONE HISTORY: 26 years-old Female left sided pain eval for stone acute left-sided flank pain COMPARISON: None available TECHNIQUE: Multiple axial CT images of the abdomen and pelvis were obtained without the use of IV contrast. A dose lowering technique was used consistent with the principals of ALVARO. FINDINGS: Lung bases are generally clear. No pneumatosis or pneumoperitoneum identified. Imaged inferior cardiac chambers are unremarkable. The liver, spleen, gallbladder, and pancreas are unremarkable. There is mild thickening of the adrenal glands without discrete lesion definitively seen. There is mildly increased attenuation involving the medullary pyramids of the kidneys bilaterally which may be secondary to dehydration. No definite renal calculi or hydronephrosis. Study however is limited secondary to L2 and lack of mesenteric adipose tissue. Calcifications are seen within the pelvis suggesting phleboliths. Uterus is noted predominantly within the left hemipelvis. No definite adnexal mass lesions identified. Aorta is normal in course and caliber. No bulky adenopathy. Mild free pelvic fluid. There is no bowel obstruction or focal bowel wall thickening. Retained oral contrast is noted throughout the colon. There is mild wall thickening of the colon which extends from the ascending portion to the mid descending portion. Air-filled tubular structure within the right lower quadrant the abdomen is seen on image 259 series 3 suggesting normal appendix. Soft tissues are unremarkable. Bones appear intact. IMPRESSION: 1. No renal calculi or hydronephrosis identified. 2. Mild wall thickening of the colon extending from the region of the hepatic flexure to the mid descending colon may be secondary to partial distention or mild colitis. 3. Mild free pelvic fluid. The above report was generated using voice recognition software. It may contain grammatical, syntax or spelling errors. Electronically signed by: Caden Shook M.D. 08/10/2017 12:48 PM Dictated Date/Time: 08/10/2017 12:40 PM Medication Reconciliation New Medications: Ondasetron Odt (Zofran Odt) 4 Mg Tab 4 MG SL Q6H for Nausea for 5 Days, #20 TAB Admission Information HPI (per Admitting provider): This is a 26yo F with a PMH of cyclical vomiting syndrome, anxiety, depression and PCOS who presents with abdominal pain x 5 days. Patient is from [place] but is in [facility]. Was initially diagnosed with cyclical vomiting syndrome at age 20 and experienced cycles of vomiting every month. States that at that time she had an EGD and colonoscopy with no abnormal findings. More recently, she has only been experiencing cyclical vomiting every 6-8 months. Went out to a bar on Wednesday and had two mixed drinks. Also endorses smoking marijuana. Had sudden onset 8/10 abdominal pain on in the mid- epigastrium/LUQ with radiation to her back with associated nausea, vomiting and diarrhea. Was first experiencing bilious bouts of vomiting but is now dry heaving every 1-2 hours. Denies any fever, chills, sore throat, cough, CP, SOB, hematemesis, dysuria or constipation. Has been drinking water over the last few days but has remained unable to tolerate food. Endorses smoking marijuana once a week for years. Endorses feeling anxious. Physical Exam (per Admitting): General Appearance: no apparent distress, + thin Head: normocephalic, atraumatic Eyes: normal inspection, PERRL, sclerae normal ENT: normal ENT inspection, hearing grossly normal, pharynx normal (dry mucous membranes ) Neck: supple, no adenopathy, trachea midline Respiratory/Chest: chest non-tender, lungs clear, normal breath sounds, no respiratory distress, no accessory muscle use Cardiovascular: regular rate, rhythm, no murmur, normal peripheral pulses Abdomen/GI: normal bowel sounds, soft, no organomegaly, + tenderness ( Diffuse TTP, most notably in LUQ. No guarding. ) Back: normal inspection, no CVA tenderness Extremities/Musculoskelatal: normal inspection, no calf tenderness, no pedal edema Neurologic/Psych: no motor/sensory deficits, alert, normal mood/affect ( anxious ), oriented x 3 Skin: normal color, warm/dry, no rash Hospital Course Intractable nausea/vomiting: Cyclic vomiting syndrome Possible triggered by marijuana used CT abd/pelvis showed Mild wall thickening of the colon extending from the region of the hepatic flexure to the mid descending colon may be secondary to partial distention or mild colitis. 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 Discharge Instructions Discharge Instructions Date of Service Aug 13, 2017. Admission Reason for Admission: Intractable Nausea And Vomiting Discharge Discharge Diagnosis / Problem: Cyclic vomiting syndrome, Anxiety Discharge Goals Goal(s): Decrease discomfort, Improve function, Improve disease control Activity Recommendations Activity Limitations: resume your previous activity (as tolereted) . Instructions / Follow-Up Instructions / Follow-Up Follow up with your primary care provider within 1 week Increase potassium intake in your diet (banana, yogurt, sweet potatoes,..) Counseling on marijuana cessation Continue apply the capsaicin 4xtimes daily as needed until symptoms resolve ( Ok to discharge pt with remaining capsaicin) Current Hospital Diet Patient's current hospital diet: Regular Diet, Low Fiber Diet Discharge Diet Recommended Diet: Regular Diet Pending Studies Studies pending at discharge: no Medical Emergencies . Who to Call and When: Medical Emergencies: If at any time you feel your situation is an emergency, please call 911 immediately. . Non-Emergent Contact Non-Emergency issues call your: Primary Care Provider Call Non-Emergent contact if: your pain is not controlled, you have any medication questions . .
== END 2017-08-13 20:00 | disposition home or self-care (01) ==
LOC: C.EDB 09:36 → C.MED 13:41 → ENRESERV 14:28 → C.MS4W 08-12 21:49
PROVIDERS: ADMIT Internal Medicine; ATTEND Internal Medicine
DX: G43.A0 Cyclical vomiting, in migraine, not intractable (principal); F12.10 Cannabis abuse, uncomplicated; E87.6 Hypokalemia; E28.2 Polycystic ovarian syndrome; Z87.891 Personal history of nicotine dependence